=== PATIENT | female | born 1960 | race Caucasian/White ===

== ENCOUNTER 2020-06-24 10:30 | Outpatient (CLI) | payer OTHER ==
[2020-06-24 11:09] LABS: Basophils % (Auto) 0.4 % (0.0-1.8); Eosinophils # (Auto) 0.1 K/mm3 (0.0-0.4); Eosinophils % (Auto) 1.1 % (0.0-4.3); Hematocrit 42.2 % (30.3-42.9); Hemoglobin 14.4 gm/dl (10.1-14.3); Lymphocytes # (Auto) 1.9 K/mm3 (1.2-5.4); Lymphocytes % (Auto) 32.4 % (13.4-35.0); Mean Corpuscular HGB Conc 34 % (30-34); Mean Corpuscular Volume 95 fl (79-97); Monocytes # (Auto) 0.4 K/mm3 (0.0-0.8); Monocytes % (Auto) 6.3 % (0.0-7.3); Platelet Count 241 K/mm3 (140-440); Red Blood Count 4.43 M/mm3 (3.65-5.03); Red Cell Distribution Width 12.5 % (13.2-15.2)
[2020-06-24 11:29] LABS: Alanine Aminotransferase 16 units/L (7-56); Albumin 4.3 g/dL (3.9-5); BUN/Creatinine Ratio 24; Blood Urea Nitrogen 19 mg/dL (7-17); Calcium 9.4 mg/dL (8.4-10.2); Chol/HDL Ratio 2.51 %; HDL Cholesterol 80 mg/dL (40-59); Hemolysis Index 12; LDL Cholesterol,Direct 119 mg/dL (50-130)
--- NOTE | 2020-06-24 12:26 | XRay Report ---
THORACIC SPINE 3 VIEWS INDICATION / CLINICAL INFORMATION: PAIN IN THORACIC SPINE. COMPARISON: None available. FINDINGS: VERTEBRAE: No acute fracture. No significant malalignment. DISC SPACES / FACET JOINTS:No significant abnormality. PARASPINAL SOFT TISSUES:No significant abnormality. ADDITIONAL FINDINGS: None. Signer Name: Fernando Ruiz MD Signed: 06/24/2020 12:22 PM Workstation Name: [id number]
[2020-06-28 11:28] LABS: Vitamin D, 25-OH, D2 <4 ng/mL
== END 2020-06-24 10:31 | disposition home or self-care (01) ==
LOC: LAB 10:30
PROVIDERS: ATTEND Internal Medicine
DX: M54.6 Pain in thoracic spine (principal)
CPT/HCPCS: 36415; 72072; 80053; 80061; 82306; 83036; 84443; 85025

== ENCOUNTER 2021-06-18 20:21 | Emergency (ER) | payer SELFPAY ==
[2021-06-19] MEDS ORDERED: HEPARIN 10,000 UNITS/10 ML VIAL IV PRN (04:43)
--- NOTE | 2021-06-19 05:12 | XRay Report ---
CHEST 2 VIEWS INDICATION / CLINICAL INFORMATION: Dysrhythmia. COMPARISON: None available. FINDINGS: SUPPORT DEVICES: None. HEART / MEDIASTINUM: The heart size and pulmonary vasculature are normal. LUNGS / PLEURA: No significant pulmonary or pleural abnormality. No pneumothorax. ADDITIONAL FINDINGS: No significant additional findings. IMPRESSION: No acute findings. Signer Name: Bismark Baig MD Signed: 06/19/2021 5:08 AM Workstation Name: [id number]
[2021-06-19 05:16] LABS: Basophils % (Auto) 0.6 % (0.0-1.8); Eosinophils # (Auto) 0.2 K/mm3 (0.0-0.4); Eosinophils % (Auto) 3.3 % (0.0-4.3); Hematocrit 41.6 % (30.3-42.9); Hemoglobin 13.7 gm/dl (10.1-14.3); Lymphocytes # (Auto) 2.9 K/mm3 (1.2-5.4); Lymphocytes % (Auto) 42.9 % (13.4-35.0); Mean Corpuscular HGB Conc 33 % (30-34); Mean Corpuscular Volume 96 fl (79-97); Monocytes # (Auto) 0.5 K/mm3 (0.0-0.8); Monocytes % (Auto) 7.6 % (0.0-7.3); Platelet Count 246 K/mm3 (140-440); Red Blood Count 4.35 M/mm3 (3.65-5.03); Red Cell Distribution Width 12.4 % (13.2-15.2)
[2021-06-19 05:38] LABS: Alanine Aminotransferase 18 units/L (7-56); Albumin 4.4 g/dL (3.9-5); Blood Urea Nitrogen 17 mg/dL (7-17); Calcium 9.5 mg/dL (8.4-10.2); Hemolysis Index 9
[2021-06-19 05:45] LABS: BUN/Creatinine Ratio 24
--- NOTE | 2021-06-19 06:54 | Emergency Department Report ---
ED Palpitations HPI - General Chief Complaint: Arrhythmia/Palpitations Stated Complaint: PALPITATIONS,WEAKNESS Time Seen by Provider: 06/19/21 04:43 Source: patient Mode of arrival: Ambulatory Limitations: No Limitations - History of Present Illness Initial Comments: 61-year-old female presents emergency department complaining a few week history of episodes of palpitations of unknown etiology. States that spontaneously occurred but appears to be associated with periods of anxiety and sometimes when she exercises. She reports no chest pain or shortness of breath occasionally palpitations are associated with a little bit of lightheadedness but is transient in nature today she began to feel weakness and fatigue so decided to come get checked out last episode of palpitations was about 3 days ago she is yet to follow-up primary care or cardiology for further evaluation she reports no fever, chills, sweats, lower extremity swelling, nausea, vomiting, this is drug use, tobacco abuse and currently only takes lisinopril for hypertension Associated Symptoms: denies: shortness of breath, near-syncope, diaphoresis, cough, parasthesias, feeling of impending doom - Related Data Allergies Allergy/AdvReac Type Severity Reaction Status Date / Time No Known Allergies Allergy Unverified 06/18/21 21:04 ED Review of Systems ROS: Stated complaint: PALPITATIONS,WEAKNESS Other details as noted in HPI Comment: All other systems reviewed and negative ED Physical Exam - General Limitations: No Limitations General appearance: alert, in no apparent distress - Head Head exam: Present: atraumatic, normocephalic - Eye Eye exam: Present: normal appearance, PERRL, EOMI - ENT ENT exam: Present: mucous membranes moist - Neck Neck exam: Present: normal inspection - Respiratory Respiratory exam: Present: normal lung sounds bilaterally. Absent: respiratory distress - Cardiovascular Cardiovascular Exam: Present: regular rate, normal rhythm, normal heart sounds. Absent: bradycardia, tachycardia, systolic murmur, diastolic murmur, rubs, gallop - GI/Abdominal GI/Abdominal exam: Present: soft, normal bowel sounds - Extremities Exam Extremities exam: Present: normal inspection - Back Exam Back exam: Present: normal inspection - Neurological Exam Neurological exam: Present: alert, oriented X3 - Psychiatric Psychiatric exam: Present: normal affect, normal mood - Skin Skin exam: Present: warm, dry, intact, normal color. Absent: rash ED Course Vital Signs 06/18/21 21:01 Temperature 98.3 F Pulse Rate 76 Respiratory 16 Rate Blood Pressure 159/73 O2 Sat by Pulse 99 Oximetry ED Medical Decision Making - Lab Data Result diagrams: 06/19/21 04:50 06/19/21 04:50 Lab Results 06/19/21 06/19/21 06/19/21 Range/Units 04:50 04:50 04:50 WBC 6.8 (4.5-11.0) K/mm3 RBC 4.35 (3.65-5.03) M/mm3 Hgb 13.7 (10.1-14.3) gm/dl Hct 41.6 (30.3-42.9) % MCV 96 (79-97) fl MCH 31 (28-32) pg MCHC 33 (30-34) % RDW 12.4 L (13.2-15.2) % Plt Count 246 (140-440) K/mm3 Lymph % (Auto) 42.9 H (13.4-35.0) % Karnes % (Auto) 7.6 H (0.0-7.3) % Eos % (Auto) 3.3 (0.0-4.3) % Baso % (Auto) 0.6 (0.0-1.8) % Lymph # (Auto) 2.9 (1.2-5.4) K/mm3 Karnes # (Auto) 0.5 (0.0-0.8) K/mm3 Eos # (Auto) 0.2 (0.0-0.4) K/mm3 Baso # (Auto) 0.0 (0.0-0.1) K/mm3 Seg Neutrophils % 45.6 (40.0-70.0) % Seg Neutrophils # 3.1 (1.8-7.7) K/mm3 Sodium 138 (137-145) mmol/L Potassium 4.1 (3.6-5.0) mmol/L Chloride 102.0 (98-107) mmol/L Carbon Dioxide 22 (22-30) mmol/L Anion Gap 18 mmol/L BUN 17 (7-17) mg/dL Creatinine 0.7 (0.6-1.2) mg/dL Estimated GFR > 60 ml/min BUN/Creatinine Ratio 24 % Glucose 110 H (65-100) mg/dL Calcium 9.5 (8.4-10.2) mg/dL Magnesium 1.90 (1.7-2.3) mg/dL Total Bilirubin 0.30 (0.1-1.2) mg/dL AST 22 (5-40) units/L ALT 18 (7-56) units/L Alkaline Phosphatase 91 (35-129) units/L Troponin T < 0.010 (0.00-0.029) ng/mL Total Protein 7.8 (6.3-8.2) g/dL Albumin 4.4 (3.9-5) g/dL Albumin/Globulin Ratio 1.3 % TSH 1.730 (0.270-4.200) mlU/mL - EKG Data Interpretation: normal EKG - Radiology Data Radiology results: report reviewed [facility] [address] [place] [address] XRay Report Signed Patient: KOKO COOPER MR#: [id number] : 1960 Acct:[id number] Age/Sex: 61 / F ADM Date: 06/18/21 Loc: ED Attending Dr: Ordering Physician: RUDI MALIN Date of Service: 06/19/21 Procedure(s): XR chest routine 2V Accession Number(s): [id number] cc: RUDI MALIN Fluoro Time In Minutes: CHEST 2 VIEWS INDICATION / CLINICAL INFORMATION: Dysrhythmia. COMPARISON: None available. FINDINGS: SUPPORT DEVICES: None. HEART / MEDIASTINUM: The heart size and pulmonary vasculature are normal. LUNGS / PLEURA: No significant pulmonary or pleural abnormality. No pneumothorax. ADDITIONAL FINDINGS: No significant additional findings. IMPRESSION: No acute findings. Signer Name: Bismark Baig MD Signed: 06/19/2021 5:08 AM Workstation Name: [id number] Transcribed By: RT Dictated By: Bismark Baig MD Electronically Authenticated By: Bismark Baig MD Signed Date/Time: 06/19/21507 DD/ 6 - Medical Decision Making Patient presents to emergency department with palpitations and ECG is noted to be indicative of a normal sinus rhythm. Palpitations are unlikely secondary to other concomitant causes such as pulmonary embolus or acute coronary syndrome. The immediate cause is not apparent. Potential causes considered include but are not limited to infection, hypothyroidism, bone embolism, pericarditis, dehydration, anemia, pheochromocytoma, drug and alcohol withdrawal or intoxication among other things. Despite the evaluation including history, examination, testing, the cause of the palpitations remains unclear however the history, exam, the chest do not raise concern for any of the aforementioned diagnoses. Disposition; during emergency stay the patient's vital signs and symptoms were stable concerning Critical care attestation.: If time is entered above; I have spent that time in minutes in the direct care of this critically ill patient, excluding procedure time. ED Disposition Clinical Impression: Palpitations Disposition: HOME / SELF CARE / HOMELESS Is pt being admited?: No Does the pt Need Aspirin: No Condition: Stable Instructions: Palpitations, Ambulatory Cardiac Monitoring Additional Instructions: He was seen evaluate emergency department today for palpitations. Your evaluation showed no medical condition requiring emergent intervention at this time. Your palpitations and ECG is noted to be indicative of a normal sinus rhythm. Palpitations are unlikely secondary to other concomitant causes such as pulmonary embolus or acute coronary syndrome. The immediate cause is not apparent. 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 Please schedule an appointment for follow-up with your primary care physician as soon as possible. Return to emergency department if you expands worsening uncontr olled chest pain, shortness of breath, lightheadedness, feeling faint, nausea, vomiting or any other concerning symptoms. Despite the evaluation including history, examination, testing, the cause of the palpitations remains unclear however the history, exam, the chest do not raise concern for any of the aforementioned diagnoses. Disposition; during emergency stay the patient's vital signs and symptoms were stable concerning Referrals: ANTHONY BELCHER MD [Primary Care Provider] - 3-5 Days
[2021-06-19 07:36] VITALS: BP 138/80
--- NOTE | 2021-06-19 11:26 | Electrocardiograph Report ---
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
== END 2021-06-19 07:37 | disposition home or self-care (01) ==
LOC: ED 20:21
DX: R00.2 Palpitations (principal)
CPT/HCPCS: 36415; 71046; 80053; 83735; 84443; 84484; 85025; 93005; 99283